=== PATIENT | male | born 1960 | race American Indian/Alaskan Native ===

== ENCOUNTER 2019-04-26 12:31 | Emergency (ER) | payer SELFPAY ==
--- NOTE | 2019-04-26 12:59 | Event Note ---
ED Screening Note ED Screening Note: c/o lower abd discomfort for 5 days states he is visiting from [facility] he is having difficulty urinating +dysuria states that he has BPH no penile discharge no N/V/D no pain or edema in the testicles +smoker hx of COPD, DM, HTN This initial assessment/diagnostic orders/clinical plan/treatment(s) is/are subject to change based on patients health status, clinical progression and re- assessment by fellow clinical providers in the ED. Further treatment and workup at subsequent clinical providers discretion. Patient/guardian urged not to elope from the ED as their condition may be serious if not clinically assessed and managed. Initial orders include: UA, labs
[2019-04-26 13:46] LABS: Basophils # (Auto) 0.1 K/mm3 (0.0-0.1); Basophils % (Auto) 1.4 % (0.0-1.8); Eosinophils # (Auto) 0.2 K/mm3 (0.0-0.4); Eosinophils % (Auto) 3.6 % (0.0-4.3); Hematocrit 44.5 % (35.5-45.6); Hemoglobin 15.4 gm/dl (11.8-15.2); Lymphocytes # (Auto) 2.1 K/mm3 (1.2-5.4); Lymphocytes % (Auto) 31.2 % (13.4-35.0); Mean Corpuscular HGB Conc 35 % (32-34); Mean Corpuscular Volume 94 fl (84-94); Monocytes # (Auto) 0.5 K/mm3 (0.0-0.8); Monocytes % (Auto) 7.8 % (0.0-7.3); Platelet Count 111 K/mm3 (140-440); Red Blood Count 4.72 M/mm3 (3.65-5.03); Red Cell Distribution Width 13.2 % (13.2-15.2)
[2019-04-26 13:56] LABS: Bilirubin,Urine NEG (Negative); Blood,Urine NEG (Negative); Color,Urine Amber (Yellow); Mucus,Urine FEW /HPF
[2019-04-26 14:03] LABS: Alanine Aminotransferase 59 units/L (7-56); Albumin 3.6 g/dL (3.9-5); BUN/Creatinine Ratio 20; Blood Urea Nitrogen 16 mg/dL (9-20); Calcium 8.7 mg/dL (8.4-10.2); Hemolysis Index 16
[2019-04-26] MEDS ORDERED: SODIUM CHLORIDE 0.9% 1000 ML 1,000 ML IV ONE (14:37)
[2019-04-26] MEDS ORDERED: MORPHINE 2 MG/1 ML INJ IV ONE (14:37)
[2019-04-26] MEDS ORDERED: ONDANSETRON 4 MG/2 ML INJ IV ONE (14:37)
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
[2019-04-26] MEDS ORDERED: MAGNESIUM SULFATE 2 GM/50 ML BAG IV ONE (15:28)
[2019-04-26 16:43] LABS: BUN/Creatinine Ratio 20; Blood Urea Nitrogen 14 mg/dL (9-20); Calcium 8.2 mg/dL (8.4-10.2); Hemolysis Index 36
--- NOTE | 2019-04-26 16:55 | Cat Scan Report ---
CT ABDOMEN AND PELVIS WITHOUT CONTRAST INDICATION: Unspecified abdominal pain. COMPARISON: No relevant prior imaging study available. TECHNIQUE: Axial, coronal and sagittal CT imaging of the abdomen and pelvis was performed without IV contrast. Lack of intravenous contrast limits evaluation of the vascular and solid organs. Oral con trast was administered. All CT scans at this location are performed using CT dose reduction for ALARA by means of automated exposure control. FINDINGS: LOWER CHEST: There is mild bibasilar atelectasis. No additional significant abnormality is seen. LIVER: No significant abnormality. BILIARY: The gallbladder is surgically absent. No biliary ductal dilatation is seen. PANCREAS: No significant abnormality. SPLEEN: No significant abnormality. ADRENALS: No significant abnormality. KIDNEYS AND URETERS: The right kidney is surgically absent. No suspicious mass is seen along the righ t renal bed. Probable left renal cysts measure up to 3.2 cm. No additional significant abnormality is identified. GI TRACT: No significant abnormality of the stomach, small bowel or colon. The appendix is not seen. PERITONEUM: No free fluid. No free air. No fluid collection. LYMPH NODES: No significant adenopathy. VASCULATURE: The aorta is normal in caliber with mild generalized atherosclerosis. URINARY BLADDER: Multiple stones are seen dependently in the bladder with a small right posterior lat eral diverticulum. REPRODUCTIVE ORGANS: The prostate gland is mildly enlarged and measures 5.3 x 4.7 cm. ADDITIONAL FINDINGS: None. SKELETAL SYSTEM: No acute abnormality is seen. There are degenerative changes throughout the spine an d along the SI joints. IMPRESSION: 1. No acute abnormality of the abdomen or pelvis. 2. Additional findings as above. Signer Name: Paul Rice MD Signed: 04/26/2019 4:50 PM Workstation Name: [id number]
[2019-04-26] MEDS ORDERED: D5W/0.45% NACL 1,000 ML IV SCH (17:00)
[2019-04-26 18:49] VITALS: BP 169/94
== END 2019-04-26 18:49 | disposition home or self-care (01) ==
LOC: ED 12:31
DX: N21.0 Calculus in bladder (principal); R74.0 Nonspecific elevation of levels of transaminase and lactic acid dehydrogenase [LDH]; F17.200 Nicotine dependence, unspecified, uncomplicated; Z90.49 Acquired absence of other specified parts of digestive tract; Z79.899 Other long term (current) drug therapy
CPT/HCPCS: 36415; 74176; 80048; 80053; 81001; 82550; 83690; 83735; 85025; 93005; 93010; 96365; 96375; 99284; J2270; J2405; J3475; J7030

== ENCOUNTER 2019-04-29 10:23 | Emergency (ER) | payer SELFPAY ==
--- NOTE | 2019-04-29 11:13 | Emergency Department Report ---
Chief Complaint: Anxiety Stated Complaint: ANXIETY Time Seen by Provider: 04/29/19 10:58 - HPI History of Present Illness: 58-year-old male with history of anxiety presents to ED requesting medication refill for Celexa 10 mg. Patient states he has been out of his medications for 2 weeks now. Reports feeling anxious, reports difficulty sleeping over the last couple of days, which is consistent with his usual anxiety symptoms. Patient denies any suicidal or homicidal ideations, hallucinations. - ROS Review of Systems: Psych: positive for anxiety; negative for hallucinations, suicidal/ homicidal ideations - Exam Vital Signs: Vital Signs 04/29/19 10:35 Temperature 97.8 F Pulse Rate 66 Respiratory 16 Rate Blood Pressure 173/96 [Left] O2 Sat by Pulse 99 Oximetry Physical Exam: Patient is nontoxic appearing. Vitals are normal except for elevated blood pressure. Patient is alert and oriented 3. No obvious neuro deficits on exam. Patient does not appear to be overly anxious. No suicidal or homicidal ideations present. MSE screening note: Focused history and physical exam performed. Due to findings the following was ordered: N/A ED Medical Decision Making - Medical Decision Making Medical screening exam performed. Patient is not taking benzodiazepines, so there is no concern for withdrawal. Patient does not have an emergent condition at this time. He will be given outpatient resources. - Differential Diagnosis anxiety ED Disposition for MSE Clinical Impression: Anxiety, Encounter for medication refill Disposition: MED SCREENING EXAM-LEFT Is pt being admited?: No Condition: Stable Referrals: ENEIDA SHAH MD [Staff Physician] - [facility] [Provider Group] - as needed PRIMARY CAREMD [Primary Care Provider] - as needed Time of Disposition: :14
[2019-04-29 11:16] VITALS: BP 173/96
== END 2019-04-29 11:24 | disposition left against medical advice (07) ==
LOC: ED 10:23
DX: F41.9 Anxiety disorder, unspecified (principal); Z76.0 Encounter for issue of repeat prescription

== ENCOUNTER 2019-05-01 19:00 | Emergency (ER) | payer SELFPAY ==
[2019-05-01 19:22] VITALS: BP 181/100
--- NOTE | 2019-05-01 19:25 | Event Note ---
ED Screening Note Date of service: 05/01/19 Time: 19:19 ED Screening Note: Patient reports pain to rt side of abdomen from RUQ to RLQ. Pain burninin , numbing and bloating.. Denies N/V?D. Reports chills. He was here . Reports hard stool. He was here 5 days ago and was told he has gallstones and was given motrin and a antibiotic. A&O x3..non toxic in appearance ABD: soft. TTP RUQ. Pain with palpation radiated distallt. NL BS Abdominal pain This initial assessment/diagnostic orders/clinical plan/treatment(s) is/are subject to change based on patients health status, clinical progression and re- assessment by fellow clinical providers in the ED. Further treatment and workup at subsequent clinical providers discretion. Patient/guardian urged not to elope from the ED as their condition may be serious if not clinically assessed and managed. Initial orders include: labs
[2019-05-01 20:12] LABS: Bilirubin,Urine NEG (Negative); Blood,Urine NEG (Negative); Color,Urine Amber (Yellow); Mucus,Urine FEW /HPF
[2019-05-01 20:53] LABS: Basophils # (Auto) 0.1 K/mm3 (0.0-0.1); Basophils % (Auto) 1.6 % (0.0-1.8); Eosinophils # (Auto) 0.3 K/mm3 (0.0-0.4); Eosinophils % (Auto) 3.7 % (0.0-4.3); Hematocrit 41.5 % (35.5-45.6); Hemoglobin 14.5 gm/dl (11.8-15.2); Lymphocytes # (Auto) 2.5 K/mm3 (1.2-5.4); Lymphocytes % (Auto) 34.6 % (13.4-35.0); Mean Corpuscular HGB Conc 35 % (32-34); Mean Corpuscular Volume 93 fl (84-94); Monocytes # (Auto) 0.7 K/mm3 (0.0-0.8); Monocytes % (Auto) 9.9 % (0.0-7.3); Platelet Count 105 K/mm3 (140-440); Red Blood Count 4.45 M/mm3 (3.65-5.03); Red Cell Distribution Width 13.1 % (13.2-15.2)
[2019-05-01 21:19] LABS: Alanine Aminotransferase 49 units/L (7-56); Albumin 3.8 g/dL (3.9-5); BUN/Creatinine Ratio 16; Blood Urea Nitrogen 14 mg/dL (9-20); Calcium 9.1 mg/dL (8.4-10.2); Hemolysis Index 11
== END 2019-05-02 00:50 | disposition left against medical advice (07) ==
LOC: ED 19:00
DX: R10.9 Unspecified abdominal pain (principal); Z53.21 Procedure and treatment not carried out due to patient leaving prior to being seen by health care provider
CPT/HCPCS: 36415; 80053; 81001; 83690; 85025

== ENCOUNTER 2019-05-02 08:42 | Emergency (ER) | payer SELFPAY ==
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
[2019-05-02] MEDS ORDERED: DICYCLOMINE 20 MG/2 ML INJ IM ONE (09:57)
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
[2019-05-02] MEDS ORDERED: POTASSIUM CHLORIDE ER 20 MEQ TAB PO ONE (11:01)
[2019-05-02 11:31] VITALS: BP 127/92
== END 2019-05-02 11:40 | disposition home or self-care (01) ==
LOC: ED 08:42
DX: E87.6 Hypokalemia (principal); R10.33 Periumbilical pain; I10 Essential (primary) hypertension; F03.90 Unspecified dementia, unspecified severity, without behavioral disturbance, psychotic disturbance, mood disturbance, and anxiety
CPT/HCPCS: 74022; 96372; 99283; J0500